=== PATIENT | female | born 1950 | race Two or more races ===

== ENCOUNTER 2018-11-25 07:54 | Emergency (ER) | payer OTHER ==
[2018-11-25 08:02] VITALS: BP 129/74; PULSE 73; TEMP 98.5
--- NOTE | 2018-11-25 08:26 | PDOC ---
History of Present Illness - General Chief Complaint: Injury Stated Complaint: FALL Time Seen by Provider: 11/25/18 08:18 History Source: Patient Exam Limitations: No Limitations - History of Present Illness Initial Comments: 11/25/18 08:30 Patient came status post fall/slip on icy floor at [facility], where she works. States fell to the left side striking and twisting her left knee, hitting her left hip, and striking the left side of her head. There is no LOC, no drainage from nose or ears, no mental status change. Complains of mild headache pain, left hip and left knee pain Occurred: reports: just prior to arrival, this morning Severity: reports: mild, moderate Pain Location: reports: head, lower extremity (left knee ), pelvis Method of Injury: Yes: fall Modifying Factors: improves with: cold therapy Loss of Consciousness: no loss of consciousness Associated Symptoms (Fall): denies symptoms Past History - Travel Traveled outside of the country in the last 30 days: No Close contact w/someone who was outside of country & ill: No - Past Medical History Allergies/Adverse Reactions: Allergies Allergy/AdvReac Type Severity Reaction Status Date / Time No Known Allergies Allergy Verified 08/09/12 09:09 Home Medications: Ambulatory Orders Valsartan 320 mg PO ASDIR 11/25/18 COPD: No HTN: Yes Hypercholesterolemia: Yes - Surgical History Cardiac Surgery: No - Immunization History Immunization Up to Date: No - Psycho Social/Smoking Cessation Hx Smoking Status: No Smoking History: Never smoked Have you smoked in the past 12 months: No Number of Cigarettes Smoked Daily: 0 Information on smoking cessation initiated: No Hx Alcohol Use: No Drug/Substance Use Hx: No Review of Systems - Review of Systems Able to Perform ROS?: Yes Is the patient limited Thai proficient: Yes Constitutional: Yes: Symptoms Reported, See HPI, Malaise. No: Fever HEENTM: Yes: See HPI. No: Symptoms Reported, Eye Pain, Blurred Vision Respiratory: Yes: See HPI. No: Symptoms reported Musculoskeletal: Yes: Symptoms Reported, See HPI, Back Pain, Joint Pain, Muscle Pain Integumentary: Yes: Symptoms Reported, See HPI. No: Bruising Neurological: Yes: Symptoms reported, See HPI, Headache Psychiatric: Yes: Anxiety All Other Systems: Reviewed and Negative *Physical Exam - Vital Signs Last Vital Signs Temp Pulse Resp BP Pulse Ox 98.5 F 73 16 129/74 98 11/25/18 07:58 11/25/18 07:58 11/25/18 07:58 11/25/18 07:58 11/25/18 07:58 - Physical Exam General Appearance: Yes: Nourished, Appropriately Dressed, Apparent Distress, Mild Distress HEENT: positive: REJI, Normal ENT Inspection, TMs Normal (No hemotympanum, no drainage from nose or ears, no evidence of skull fracture), Pharynx Normal. negative: Rhinorrhea Neck: positive: Tender, Supple Respiratory/Chest: positive: Lungs Clear, Normal Breath Sounds Cardiovascular: positive: Regular Rhythm Gastrointestinal/Abdominal: positive: Normal Bowel Sounds, Soft Musculoskeletal: negative: Normal Inspection, Muscle Spasm, Vertebral Tenderness Extremity: positive: Normal Inspection, Tender. negative: Normal Range of Motion (Limited range of motion secondary to pain to the left knee capsule) Integumentary: positive: Normal Color, Ecchymosis, Bruising (Some swelling and ecchymosis noted to left knee capsule to patella and lateral aspect. 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 Knee immobilizer placed, patient given ibuprofen for pain and swelling relief. Discharge - Discharge Information Problems reviewed: Yes Clinical Impression/Diagnosis: Multiple contusions, Left knee sprain Condition: Stable Disposition: HOME - Admission No - Follow up/Referral Referrals: Tae Whitaker MD [Staff Physician] - - Patient Discharge Instructions Patient Printed Discharge Instructions: Easy Bruising (Alternative Therapy), DI for Knee Pain Additional Instructions: Rest, ice to area on and off for 15 minutes 4-6 times a day Avoid heavy lifting or exercise until pain and swelling is resolved or until further directed Keep area highly elevated to reduce swelling Use splints/Marquise wrap as directed Followup with orthopedist in one to 2 days if not improving, if significantly improved may wait one week for followup with orthopedist May use ibuprofen every 6 hours as needed for pain - Post Discharge Activity Work/Back to School Note: Back to Work
[2018-11-25] MEDS ORDERED: IBUPROFEN 400 MG TABLET (FP) PO ONE ×2 (08:38→08:42)
== END 2018-11-25 09:09 | disposition home or self-care (01) ==
LOC: JERFT 07:54
DX: S83.92XA Sprain of unspecified site of left knee, initial encounter (principal); T14.8XXA Other injury of unspecified body region, initial encounter; W01.0XXA Fall on same level from slipping, tripping and stumbling without subsequent striking against object, initial encounter; Y93.89 Activity, other specified; Y92.512 Supermarket, store or market as the place of occurrence of the external cause; Y99.0 Civilian activity done for income or pay; F41.9 Anxiety disorder, unspecified; I10 Essential (primary) hypertension; E78.00 Pure hypercholesterolemia, unspecified
CPT/HCPCS: 72170-TC-FY; 73562-TC-LT-FY; 99282-25